=== PATIENT | female | born 1965 | race American Indian/Alaskan Native ===

== ENCOUNTER 2017-04-16 13:12 | Emergency (ER) | payer MEDICARE ==
[2017-04-16] MEDS ORDERED: TYLENOL PO ONE (16:03)
--- NOTE | 2017-04-16 16:32 | XRay Report ---
FINAL REPORT PROCEDURE: Lumbar spine. TECHNIQUE: Three views. HISTORY: Lumbar spine tenderness. COMPARISON: No prior studies are available for comparison. FINDINGS: The lumbar vertebrae have normal height and alignment. There are no fractures. There is no spondylolisthesis. The disc spaces appear adequate. There is a mild lumbar scoliosis. The sacrum and sacroiliac joints are unremarkable. IMPRESSION: Mild lumbar scoliosis.
[2017-04-16 18:17] VITALS: BP 122/74
--- NOTE | 2017-04-16 18:49 | Emergency Department Report ---
Entered by LAURENT HUSSEIN, acting as scribe for KAMILA MCCRAY NP. ED Back Pain/Injury HPI - General Chief Complaint: Back Pain/Injury Stated Complaint: LOWER BACK PAIN Time Seen by Provider: 04/16/17 15:41 Source: patient Limitations: No Limitations - History of Present Illness Initial Comments: This is a 51 y/o female, nontoxic, well nourished in appearance, no acute signs of distress with a PMHx of ID and HTN presents with c/o sharp low back pain that began 3 weeks ago. Patient rates the pain a 10/10 in severity, which radiates to right leg. Aggravated with movement and alleviated with nothing. Patient states she believes she pulled a muscle at work while lifting and pulling objects. Pt denies any back injury/trauma, bowel/urinary incontinence, dysuria, urgency, and frequency, fever, chills, chest pain, SOB, HOLLIS or dizziness , numbness, tingling. Notes Hx of similar back pain, which she states she gets steroid shots for pain. Notes her last steroid shot was 6 months ago. 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 Denies receiving X-rays and MRIs of back in the past. Allergic to ibuprofen. MD Complaint: back pain (low back) Onset/Timin -: week(s) Similar Symptoms Previously: Yes Place: home Radiation: right leg Severity: severe Severity scale (0 -10): 10 Quality: sharp Consistency: constant Improves With: none Worsens With: movement Context: unknown Associated Symptoms: denies other symptoms. denies: confusion, weakness, chest pain, numbness, difficulty walking, cough, difficulty urinating, diaphoresis, incontinence, fever/chills, constipation, headaches, abdominal pain, nausea/ vomiting, rash, shortness of breath, syncope - Related Data Previous Rx's Medication Instructions Recorded Last Taken Type amLODIPine [Norvasc] 5 mg PO DAILY #30 tablet 09/16/15 1 Month Ago Rx Aspirin [Aspirin TAB] 325 mg PO QDAY #30 tablet 06/23/16 Unknown Rx Carvedilol [Coreg] 6.25 mg PO BID #60 tablet 06/23/16 Unknown Rx Clopidogrel [Plavix] 75 mg PO DAILY #30 tablet 06/23/16 Unknown Rx ISOSORBIDE MONOnitrate [Imdur ER] 30 mg PO QDAY #30 tablet 06/23/16 Unknown Rx Lisinopril [Zestril TAB] 5 mg PO QDAY #30 tablet 06/23/16 Unknown Rx Simvastatin [Zocor TAB] 40 mg PO QHS #30 tablet 06/23/16 Unknown Rx Cyclobenzaprine [Flexeril 10 MG 10 mg PO TID PRN #20 tablet 09/04/16 Unknown Rx TAB] oxyCODONE /ACETAMINOPHEN [Percocet 1 tab PO Q6HR PRN #20 tablet 09/04/16 Unknown Rx 5/325] predniSONE [Deltasone] 20 mg PO BID #10 tab 04/16/17 Unknown Rx Allergies Allergy/AdvReac Type Severity Reaction Status Date / Time ibuprofen Allergy Itching Verified 09/16/15 10:52 ED Review of Systems Comment: All other systems reviewed and negative Constitutional: denies: chills, diaphoresis, fever, weakness Eyes: denies: eye pain, eye discharge, vision change ENT: denies: ear pain, throat pain Respiratory: denies: cough, orthopnea, shortness of breath, SOB with exertion, SOB at rest, stridor, wheezing Cardiovascular: denies: chest pain, palpitations, dyspnea on exertion, orthopnea , edema, syncope Endocrine: no symptoms reported Gastrointestinal: denies: abdominal pain, nausea, vomiting, diarrhea, constipation Genitourinary: denies: urgency, dysuria, discharge, other (incontinence) Musculoskeletal: back pain (low back pain). denies: joint swelling, arthralgia , myalgia Skin: denies: rash, lesions Neurological: denies: headache, weakness, numbness, paresthesias, confusion Hematological/Lymphatic: denies: easy bleeding, easy bruising ED Past Medical Hx - Past Medical History Previous Medical History?: Yes Hx Hypertension: Yes Hx Heart Attack/AMI: Yes (stent 06/2016) Hx Congestive Heart Failure: No Hx Diabetes: No Hx Asthma: No Hx COPD: No - Surgical History Hx Coronary Stent: Yes (06/22/2016 proximal RCA) Additional Surgical History: right leg surgery-pins and screws - Social History Smoking Status: Current Every Day Smoker Substance Use Type: None - Medications Home Medications: Home Medications Medication Instructions Recorded Confirmed Last Taken Type amLODIPine [Norvasc] 5 mg PO DAILY #30 tablet 09/16/15 09/04/16 1 Month Ago Rx Aspirin [Aspirin TAB] 325 mg PO QDAY #30 tablet 06/23/16 09/04/16 Unknown Rx Carvedilol [Coreg] 6.25 mg PO BID #60 tablet 06/23/16 09/04/16 Unknown Rx Clopidogrel [Plavix] 75 mg PO DAILY #30 tablet 06/23/16 09/04/16 Unknown Rx ISOSORBIDE MONOnitrate [Imdur ER] 30 mg PO QDAY #30 tablet 06/23/16 09/04/16 Unknown Rx Lisinopril [Zestril TAB] 5 mg PO QDAY #30 tablet 06/23/16 09/04/16 Unknown Rx Simvastatin [Zocor TAB] 40 mg PO QHS #30 tablet 06/23/16 09/04/16 Unknown Rx Cyclobenzaprine [Flexeril 10 MG 10 mg PO TID PRN #20 tablet 09/04/16 Unknown Rx TAB] oxyCODONE /ACETAMINOPHEN [Percocet 1 tab PO Q6HR PRN #20 tablet 09/04/16 Unknown Rx 5/325] predniSONE [Deltasone] 20 mg PO BID #10 tab 04/16/17 Unknown Rx ED Physical Exam - General Limitations: No Limitations General appearance: alert, in no apparent distress - Head Head exam: Present: atraumatic, normocephalic - Eye Eye exam: Present: normal appearance, PERRL, EOMI Pupils: Present: normal accommodation - ENT ENT exam: Present: normal exam, normal orophraynx, mucous membranes moist, TM's normal bilaterally, normal external ear exam - Neck Neck exam: Present: normal inspection, full ROM. Absent: tenderness, meningismus, lymphadenopathy - Respiratory Respiratory exam: Present: normal lung sounds bilaterally. Absent: respiratory distress, wheezes, rales, rhonchi, stridor, accessory muscle use, decreased breath sounds - Cardiovascular Cardiovascular Exam: Present: regular rate, normal rhythm, normal heart sounds. Absent: bradycardia, tachycardia, irregular rhythm, systolic murmur, diastolic murmur, rubs, gallop - GI/Abdominal GI/Abdominal exam: Present: soft, normal bowel sounds. Absent: distended, tenderness, guarding, rebound, rigid - Extremities Exam Extremities exam: Present: normal inspection, full ROM, normal capillary refill. Absent: tenderness, pedal edema, joint swelling, calf tenderness - Back Exam Back exam: Present: full ROM, tenderness (lumbar spinal tenderness present), vertebral tenderness (lumbar). Absent: CVA tenderness (R), CVA tenderness (L), muscle spasm, paraspinal tenderness - Neurological Exam Neurological exam: Present: alert, oriented X3, CN II-XII intact, normal gait, reflexes normal. Absent: motor sensory deficit - Psychiatric Psychiatric exam: Present: normal affect, normal mood - Skin Skin exam: Present: warm, dry, intact. Absent: rash ED Course Vital Signs 04/16/17 04/16/17 13:42 16:29 Temperature 98.4 F Pulse Rate 86 Respiratory 20 20 Rate Blood Pressure 151/75 O2 Sat by Pulse 98 Oximetry ED Medical Decision Making - Medical Decision Making Ed course: This is a 51-year-old female that presents with chronic lumbar radiculopathy 1- xray of lumbar spine has been obtained. Patient was instructed of xray results with no questions noted by the patient. 2- patient received prednisone 40 mg daily for 5 days, discharged. 3- patient was instructed to follow-up with her primary care doctor 5 days or if symptoms worsen such as bladder or bowel stability, worsening pain, numbness , tingling, chest pain or shortness of breath return back to emergency room as was possible. 4- at time time of discharge, the patient does not seem toxic or ill in appearance. No acute signs of distress noted. Patient agrees to discharge treatment plan of care. No further questions noted by the patient. ED Disposition Clinical Impression: Lumbar radiculopathy Low back pain Qualifiers: Chronicity: unspecified Back pain laterality: unspecified Sciatica presence: unspecified whether sciatica present Qualified Code(s): M54.5 - Low back pain Disposition: DC-01 TO HOME OR SELFCARE Is pt being admited?: No Does the pt Need Aspirin: No Condition: Stable Instructions: Prednisone (By mouth), Low Back Strain (ED), Lumbar Radiculopathy (ED) Additional Instructions: Follow-up with her primary care doctor 5 days or if symptoms worsen such as bladder or bowel stability, worsening pain, numbness, tingling, chest pain or shortness of breath return back to emergency room as was possible. Take full course of prednisone as prescribed. Prescriptions: predniSONE [Deltasone] 20 mg PO BID #10 tab Referrals: PRIMARY CARE, [Primary Care Provider] - 3-5 Days ANDREW MCMANUS MD [Staff Physician] - 3-5 Days TAMMY PEREZ JR, MD [Staff Physician] - 3-5 Days [facility] [Outside] - 3-5 Days [facility] [Outside] - 3-5 Days This documentation as recorded by the JOVITA ramesh JASMINE,accurately reflects the service I personally performed and the decisions made by ,KAMILA MCCRAY, [employer] E[employer]IST.
== END 2017-04-16 18:15 | disposition home or self-care (01) ==
LOC: ED 13:12
DX: M54.16 Radiculopathy, lumbar region (principal); I10 Essential (primary) hypertension; I25.2 Old myocardial infarction; F17.200 Nicotine dependence, unspecified, uncomplicated
CPT/HCPCS: 72100; 96372; 99283; J2920